=== PATIENT | male | born 1980 | race Caucasian/White ===

== ENCOUNTER 2024-04-07 22:34 | Day surgery (SDC) | payer MEDICAID, SELFPAY ==
[2024-04-07 22:37] VITALS: BP 156/110; PULSE 82; RESP 22; TEMP 36.4; O2SAT 98; BMI 31.6
--- NOTE | 2024-04-07 22:43 | ED.GENADULT ---
HPI - General Adult General Chief complaint: Abdominal Pain Stated complaint: Severe abdominal pain Time Seen by Provider: 04/07/24 22:51 History of Present Illness HPI narrative: Stomach ache eariler after eating tonight. Pt complaining of abdominal pain. 02/17 43-year-old man presenting to the emergency department with severe abdominal pain. Began with mild stomach ache but escalated quickly. Is not reporting any dysuria. Not constipated no diarrhea. He did vomit once. No fever. He is shaking on arrival here but afebrile. Pain intense and persistent. Generally healthy without of problems. Symptoms have been going on for about 5-6 hours at this point. History of bilateral inguinal herniorrhaphy. Related Data Home Medications ?Medication ?Instructions ?Recorded ?Confirmed No Known Home Medications 04/07/24 04/07/24 Allergies Allergy/AdvReac Type Severity Reaction Status Date / Time No Known Drug Allergies Allergy Verified 04/07/24 22:40 Review of Systems Status of ROS: Reports: 6 or more systems reviewed and unremarkable except as noted in History and below Exam Narrative: Exam Narrative: Moaning in apparent discomfort. Mildly labored in mildly tachypneic in his breathing. Trembling as if cold or in significant pain. There is a purple irregular what he identifies is a birthmark on his right upper arm. Otherwise no rash identified. Lips are little dry. Lungs appear clear. Heart in regular rate and rhythm. Abdomen is diffusely tense and tender he indicates though more tenderness in the lower abdomen is where he has been feeling most discomfort. Guarding. Extremities are well perfused without edema Const: Vital Signs, click to edit/add: Vital Signs - 24 hr 04/07/24 22:37 04/07/24 23:13 04/07/24 23:14 Temperature 97.5 F L Pulse Rate 76 78 Pulse Rate [Left P ulse Oximeter] 82 Respiratory Rate 22 Blood Pressure 156/114 H Blood Pressure [Ri ght Upper Arm] 156/110 H Pulse Oximetry 98 100 98 Oxygen Delivery Me thod Room Air 04/07/24 23:15 04/07/24 23:30 04/07/24 23:45 Temperature Pulse Rate 85 90 90 Pulse Rate [Left P ulse Oximeter] Respiratory Rate Blood Pressure Blood Pressure [Ri ght Upper Arm] Pulse Oximetry 96 97 93 Oxygen Delivery Me thod Documenting provider has reviewed patient's vital signs: yes Course Vital Signs Vital signs: Initial Vital Signs Temperature 97.5 F L 04/07/24 22:37 Temperature Source Temporal Artery Scan 04/07/24 22:37 Pulse Rate 82 04/07/24 22:37 Pulse Rhythm Regular 04/07/24 22:37 Respiratory Rate 22 04/07/24 22:37 Blood Pressure 156/110 H 04/07/24 22:37 Blood Pressure Mean 125 H 04/07/24 22:37 Blood Pressure Position Sitting 04/07/24 22:37 Pulse Oximetry 98 04/07/24 22:37 Oxygen Delivery Method Room Air 04/07/24 22:37 Vital Signs Temperature 97.5 F L 04/07/24 22:37 Pulse Rate 82 04/07/24 22:37 Respiratory Rate 22 04/07/24 22:37 Blood Pressure 156/110 H 04/07/24 22:37 Pulse Oximetry 98 04/07/24 22:37 Oxygen Delivery Method Room Air 04/07/24 22:37 Temperature 97.5 F L 04/07/24 22:37 Pulse Rate 90 04/07/24 23:45 Respiratory Rate 22 04/07/24 22:37 Blood Pressure 156/114 H 04/07/24 23:13 Pulse Oximetry 93 04/07/24 23:45 Oxygen Delivery Method Room Air 04/07/24 22:37 Medications Administered Medications: Discontinued Medications Generic Name Dose Route Start Last Admin Trade Name Carla PRN Reason Stop Dose Admin Fentanyl 75 mcg 04/07/24 23:13 04/07/24 23:17 Fentanyl 100 Mcg/2 Ml Inj IVP 04/07/24 23:14 75 mcg ONCE ONE Administration Hydromorphone HCl 0.5 mg 04/07/24 23:06 04/07/24 23:10 Hydromorphone 0.5 Mg/0.5 Ml Inj IVP 04/07/24 23:07 0.5 mg ONCE ONE Administration Sodium Chloride 500 mls @ 1,000 mls/hr 04/07/24 22:48 04/07/24 22:57 0.9 % Sodium Chloride 500 Ml IV 04/07/24 23:17 1,000 mls/hr .Q30M ONE Administration Sodium Chloride 500 mls @ 1,000 mls/hr 04/07/24 23:13 04/08/24 00:04 0.9 % Sodium Chloride 500 Ml IV 04/07/24 23:42 1,000 mls/hr .Q30M ONE Administration Morphine Sulfate 4 mg 04/07/24 22:48 04/07/24 22:57 Morphine 4 Mg/Ml Inj IVP 04/07/24 22:49 4 mg ONCE ONE Administration Ondansetron HCl 4 mg 04/07/24 22:48 04/07/24 22:57 Ondansetron 2 Mg/Ml Inj IVP 04/07/24 22:49 4 mg ONCE ONE Administration Medical Decision Making MDM Narrative Medical decision making narrative: With this degree of pain could simply be intestinal colic or I would have concerns about ischemic bowel. Does not appear to have risk factors for ischemic bowel. Wondering if has excessive spasm, pain due to some smaller insult in his abdomen. Pancreatitis? I think will need imaging of his abdomen and pelvis. Ureteral stone and colic remains in differential. Urinary tract infection? Doubtful. Bowel obstruction/internal hernia. Vascular disruption - also low risk. Rather abrupt course for appendicitis. IV was established. Initially ordered for morphine which was ineffective subsequently given a dose of Dilaudid and repeated and then a fentanyl. Pain he reported was improved from 30 to a 10. Any movement 0 still with good deal of discomfort. CT abdomen pelvis with IV contrast reviewed by me shows inflammatory stranding around a dilated appendix with appendicolith. I do not appreciate any free air. Nephrolithiasis also present nonobstructing. Lactate elevated at 3.1 which I think is probably related to hyperventilating. White count normal. D-dimer reassuring. Creatinine is a little bit elevated at 1.6 --this is unexpected. I do not have prior for comparison. Has received a L of normal saline total. Radiology over-read noted. See below INDICATION: Severe mid and lower abdominal pain. TECHNIQUE: CT abdomen and pelvis acquired with 108 cc of Isovue 370 IV contrast. COMPARISON: None. FINDINGS: Lower chest: Small hiatal hernia. Liver: Unremarkable. Normal in size and attenuation. No suspicious masses. Gallbladder and bile ducts: Unremarkable. No stones or inflammation. No biliary dilatation. Pancreas: Unremarkable. No mass or inflammation. Spleen: Unremarkable. Normal in size. No masses. Adrenal glands: Unremarkable. No nodules. Kidneys: Punctate nonobstructing stone within the right kidney interpolar region. No hydronephrosis or suspicious mass bilaterally. GI tract: Fluid-filled hyperemic appendix with [id number] periappendiceal inflammatory stranding into appendicoliths within the distal lumen. The appendix is dilated up to 14 mm. No evidence for perforation or abscess formation. The small and large bowel are otherwise unremarkable. Vasculature: Abdominal aorta is normal in caliber. Mesenteric arteries are patent. Lymph nodes: No lymphadenopathy. Peritoneum/Abdominal Wall: Unremarkable. No free air or significant free fluid. Pelvis: Unremarkable. Bones: Unremarkable for age. IMPRESSION: 1. Acute uncomplicated appendicitis in the right lower quadrant. 2. Small hiatal hernia. Discussed these findings with General surgery on-call anticipating surgery in the morning. Due to elevated creatinine/renal insufficiency, will not be receiving Zosyn but instead ciprofloxacin and metronidazole. Did discuss this case with hospitalist who is thankfully excepting for admission. Lab Data Lab results reviewed: Yes I reviewed the patient's lab results Labs: Lab Results 04/07/24 Range/Units 22:49 WBC 3.50 L (4.50-11.00) K/uL RBC 5.98 H (4.30-5.90) m/uL Hgb 17.1 (13.5-17.5) gm/dL Hct 50.7 (37.0-53.0) % MCV 85 (80-100) fL MCH 29 (26-34) pg MCHC 34 (32-36) gm/dL RDW Coeff of [place] 13.1 (11.5-15.5) % Plt Count 247 (140-440) K/uL Neut % (Auto) 53.8 (42.0-72.0) % Lymph % (Auto) 37.1 (20-44) % [place] % (Auto) 0.9 (0.0-11.0) % Eos % (Auto) 6.0 (0.0-7.0) % Baso % (Auto) 1.1 (0.0-3.0) % Neut # (Auto) 1.90 (1.7-7.0) K/uL Lymph # (Auto) 1.30 (0.90-2.90) K/uL [place] # (Auto) 0.00 (0.00-0.90) K/UL Eos # (Auto) 0.20 (0.00-0.50) K/uL Baso # (Auto) 0.00 (0.00-0.30) K/uL Abs Immat Gran (auto) 0.00 (0.00-0.30) K/uL Imm/Tot Granulo (auto) 1.1 % Diff Slide Review Acceptable Review (Acceptable) D-Dimer Quant (PE/DVT) 0.09 (0.00-0.50) ug/ml Sodium 137 (135-149) mmol/L Potassium 3.8 (3.6-5.1) mmol/L Chloride 104 (96-114) mmol/L Carbon Dioxide 21 (20-32) mmol/L Anion Gap 12 (7-15) mEq/L BUN 23 (5-24) mg/dL Creatinine 1.6 H (0.5-1.5) mg/dL Estimated Creat Clear 61.47 Estimated GFR 54 ml/min Glucose 108 (60-115) mg/dL Lactate 3.1 H (0.5-1.9) mmol/L Calcium 10.3 (8.4-10.6) mg/dL Total Bilirubin 0.4 (0.1-1.5) mg/dL Direct Bilirubin 0.2 (0.0-0.5) mg/dL AST 28 (12-35) U/L ALT 40 (4-50) U/L Alkaline Phosphatase 83 (40-150) U/L Total Protein 7.7 (6.0-8.3) g/dL Albumin 4.8 (3.3-5.0) g/dL Lipase 97 (23-300) U/L POC Troponin I 0.01 (0.01-0.04) ng/ml Discharge Plan Discharge Clinical Impression: Acute appendicitis, Nephrolithiasis, Hiatal hernia, Acute renal insufficiency Patient Disposition: Admitted As Observation Condition: Improved
[2024-04-07 22:57] LABS: Lactate* 3.1 mmol/L (0.5-1.9)
[2024-04-07] MEDS: ONDANSETRON 2 MG/ML inj 4 MG IVP (22:57)
[2024-04-07] MEDS: MORPHINE 4 MG/ML INJ IVP (22:57)
[2024-04-07] MEDS: 0.9 % SODIUM CHLORIDE 500 ML 500 ML 1000 ML IV (22:57)
[2024-04-07 23:04] LABS: Troponin, Point-of-Care* 0.01 ng/ml (0.01-0.04)
--- NOTE | 2024-04-07 23:07 | CRLHL7_ITS ---
For Patients: As a result of the Century Cures Act, medical imaging exams and procedure reports are released immediately into your electronic medical record. You may view this report before your referring provider. If you have questions, please contact your health care provider. INDICATION: Severe mid and lower abdominal pain. TECHNIQUE: CT abdomen and pelvis acquired with 108 cc of Isovue 370 IV contrast. COMPARISON: None. FINDINGS: Lower chest: Small hiatal hernia. Liver: Unremarkable. Normal in size and attenuation. No suspicious masses. Gallbladder and bile ducts: Unremarkable. No stones or inflammation. No biliary dilatation. Pancreas: Unremarkable. No mass or inflammation. Spleen: Unremarkable. Normal in size. No masses. Adrenal glands: Unremarkable. No nodules. Kidneys: Punctate nonobstructing stone within the right kidney interpolar region. No hydronephrosis or suspicious mass bilaterally. GI tract: Fluid-filled hyperemic appendix with [id number] periappendiceal inflammatory stranding into appendicoliths within the distal lumen. The appendix is dilated up to 14 mm. No evidence for perforation or abscess formation. The small and large bowel are otherwise unremarkable. Vasculature: Abdominal aorta is normal in caliber. Mesenteric arteries are patent. Lymph nodes: No lymphadenopathy. Peritoneum/Abdominal Wall: Unremarkable. No free air or significant free fluid. Pelvis: Unremarkable. Bones: Unremarkable for age. IMPRESSION: 1. Acute uncomplicated appendicitis in the right lower quadrant. 2. Small hiatal hernia. Please note that all CT scans at this facility use dose modulation, iterative reconstruction, and/or weight-based dosing when appropriate to reduce radiation dose to as low as reasonably achievable. Dictated by Kaiser Crain MD @ 04/07/2024 11:47:21 PM (Electronically Signed)
[2024-04-07 23:08] LABS: Basophils Percent Auto 1.1 % (0.0-3.0); Hematocrit 50.7 % (37.0-53.0); Hemoglobin* 17.1 gm/dL (13.5-17.5); Immature Granulocytes Pct Auto 1.1 %; Lymphocytes Percent Auto 37.1 % (20-44); Mean Corpuscular HGB Conc 34 gm/dL (32-36); Mean Corpuscular Hemoglobin 29 pg (26-34); Mean Corpuscular Volume 85 fL (80-100); Monocytes Percent Auto 0.9 % (0.0-11.0); Neutrophils Percent Auto 53.8 % (42.0-72.0); Platelet Count* 247 K/uL (140-440); RDW Coefficient of Variation % 13.1 % (11.5-15.5); Red Blood Count 5.98 m/uL (4.30-5.90)
[2024-04-07] MEDS: HYDROmorphone 0.5 mg/0.5 ml inj IVP (23:10)
[2024-04-07 23:12] LABS: Albumin* 4.8 g/dL (3.3-5.0)
[2024-04-07 23:13] VITALS: BP 156/114; PULSE 76; O2SAT 100
[2024-04-07 23:13] LABS: Chloride* 104 mmol/L (96-114); Potassium* 3.8 mmol/L (3.6-5.1); Sodium* 137 mmol/L (135-149)
[2024-04-07 23:14] VITALS: PULSE 78; O2SAT 98
[2024-04-07 23:15] VITALS: PULSE 85; O2SAT 96
[2024-04-07 23:15] LABS: Anion Gap 12 mEq/L (7-15); Aspartate Amino Transferase* 28 U/L (12-35); Bilirubin Direct* 0.2 mg/dL (0.0-0.5); Bilirubin Total* 0.4 mg/dL (0.1-1.5); Carbon Dioxide* 21 mmol/L (20-32); Creatinine* 1.6 mg/dL (0.5-1.5); Est. Creatinine Clearance* 61.47; Estimated Glomerular Filt Rate 54 ml/min; Total Protein* 7.7 g/dL (6.0-8.3)
[2024-04-07 23:16] LABS: Alanine Aminotransferase* 40 U/L (4-50); Alkaline Phosphatase* 83 U/L (40-150); Blood Urea Nitrogen* 23 mg/dL (5-24); Calcium* 10.3 mg/dL (8.4-10.6); Glucose* 108 mg/dL (60-115); Lipase* 97 U/L (23-300)
[2024-04-07] MEDS: fentaNYL 100 MCG/2 ML inj 75 MCG IVP (23:17)
[2024-04-07 23:22] LABS: Slide Review Reflex Yes
[2024-04-07 23:30] VITALS: PULSE 90; O2SAT 97
[2024-04-07 23:40] LABS: D Dimer Quantitative* 0.09 ug/ml (0.00-0.50)
[2024-04-07 23:45] VITALS: PULSE 90; O2SAT 93
[2024-04-07 23:51] LABS: Slide Review Acceptable Review (Acceptable)
[2024-04-08] VITALS (27 sets, daily range): BP systolic 103–137; BP diastolic 63–91; PULSE 60–97; RESP 13–22; TEMP 36.7–37.4; O2SAT 86–99; BMI 31.9
[2024-04-08] MEDS: 0.9 % SODIUM CHLORIDE 500 ML 500 ML 1000 ML IV (00:04)
[2024-04-08] MEDS: CIPROFLOXACIN 400 MG/200 ML PIGGYBACK 200 MG IVPB (00:48)
--- NOTE | 2024-04-08 00:53 | ED.NURSE ---
This nurse gave report to Med/Surg nurse concerning pt admission. Med/Surg nurse also knows that only Cipro was started on pt in ER and Flagyll will need to be hung on floor. Med/Surg nurse verbalizes that it is okay to send Flagyll with pt and she will hang the abx on the floor. Pt's knows that she can go up with pt, but she will be heading home for the night. Pt knows his surgery will be approx 0380 this morning and Pt has no further questions for this nurse.
[2024-04-08] MEDS: HYDROmorphone 0.5 mg/0.5 ml inj IVP ×4 (01:40→08:11)
[2024-04-08] MEDS: metroNIDAZOLE 500 MG/100 ML PIGGYBACK 100 MG IVPB (01:43)
[2024-04-08] MEDS: 0.9 % SODIUM CHLORIDE 1000 ml 1,000 ML 100 ML IV (01:46)
--- NOTE | 2024-04-08 01:53 | W.PM.TELEH&P ---
Telehealth- H&P: HPI History of Present Illness Date Seen: 04/08/24 Chief complaint: Severe abdominal pain Narrative: Chapito Jones is seen as an Interactive Telehealth visit. Chapito Jones is a 43 year old maleWith no significant past medical history presented to the emergency department with complaint of abdominal pain. Patient reports abdominal pain 4 PM after he ate dinner. He said initially it felt like the pain that you get however I had to eat normal amount. He said the pain was persistent until 9 PM. Again the pain became much more severe and also localized more to the right side. He was unable to get comfortable despite taking shower and laying down in bed. He decided to come in for further evaluation. He denies nausea or vomiting at home however did have 1 episode of vomiting after he arrived to the emergency department. He denies any history of smoking or alcohol use. He denies any history of diabetes, high blood pressure or any heart issues. He denies taking any medications. Review of systems negative for any headaches, dizziness, fever or chills. He does report feeling cold. Denies chest pain or cough. Last bowel movement was to the hospital. ROS other acosta negative ER Course Blood work showed white count of 3.5, hemoglobin 17.1, hematocrit 30.7, platelets 247, sodium 137, potassium 3.8, BUN 23 creatinine 1.6, lactate 3.3 CT abdomen pelvis showed acute uncomplicated enthesitis in the right lower quadrant. ER discussed case with general surgery and surgery plans to take the patient to the OR around 8 AM and as per ER discussion with general surgery Pt was given pain control, IV cipro and flagyl in ER. Review of Systems Narrative: Complete ROS was performed, pertinent positives and negatives per HPI. Meds Home Medications and Allergies Home Medications ?Medication ?Instructions ?Recorded ?Confirmed ?Type No Known Home Medications 04/07/24 04/07/24 History Allergies Allergy/AdvReac Type Severity Reaction Status Date / Time No Known Drug Allergies Allergy Verified 04/07/24 22:40 Exam Narrative Exam Narrative: Physical Exam GENERAL: ?vital signs reviewed, well developed and nourished, in no distress HEENT: pupils are equal round and reactive to light, extraocular movements are grossly within normal limits and oral mucosa is moist. NECK: Supple HEART: Regular rate and rhythm without any rubs, murmurs, or gallops. LUNGS: Clear to auscultation bilaterally with good air movement throughout ABDOMEN: + mild tenderness on right side. no tenderness on rest of quad. NO rebound/guarding. EXTREMITIES: Strength and sensation is observed to be grossly within normal limits in the upper and lower extremities.? No focal strength deficit is observed. SKIN:? Observed warm and dry with color normal Const Vital Signs, click to edit/add: Vital Signs - 24 hr 04/07/24 22:37 04/07/24 23:13 04/07/24 23:14 Temperature 97.5 F L Pulse Rate 76 78 Pulse Rate [Left Pulse Oximeter] 82 Pulse Rate [Pulse Oximeter] Respiratory Rate 22 Blood Pressure 156/114 H Blood Pressure [Left Arm] Blood Pressure [Right Upper Arm] 156/110 H Pulse Oximetry 98 100 98 Oxygen Delivery Method Room Air 04/07/24 23:15 04/07/24 23:30 04/07/24 23:45 Temperature Pulse Rate 85 90 90 Pulse Rate [Left Pulse Oximeter] Pulse Rate [Pulse Oximeter] Respiratory Rate Blood Pressure Blood Pressure [Left Arm] Blood Pressure [Right Upper Arm] Pulse Oximetry 96 97 93 Oxygen Delivery Method 04/08/24 01:25 Temperature 99.4 F Pulse Rate Pulse Rate [Left Pulse Oximeter] Pulse Rate [Pulse Oximeter] 97 Respiratory Rate 20 Blood Pressure Blood Pressure [Left Arm] 137/90 H Blood Pressure [Right Upper Arm] Pulse Oximetry 93 Oxygen Delivery Method Room Air Hospitalist - H&P: Result Labs Labs: Short CBC 04/07/24 Range/Units 22:49 WBC 3.50 L (4.50-11.00) K/uL Hgb 17.1 (13.5-17.5) gm/dL Hct 50.7 (37.0-53.0) % Plt Count 247 (140-440) K/uL BMP 04/07/24 22:49 Sodium 137 Potassium 3.8 Chloride 104 Carbon Dioxide 21 BUN 23 Creatinine 1.6 H Glucose 108 Calcium 10.3 Liver Function 04/07/24 Range/Units 22:49 Total Bilirubin 0.4 (0.1-1.5) mg/dL Direct Bilirubin 0.2 (0.0-0.5) mg/dL AST 28 (12-35) U/L ALT 40 (4-50) U/L Alkaline Phosphatase 83 (40-150) U/L Albumin 4.8 (3.3-5.0) g/dL Assessment and Plan Assessment and plan (1) Acute renal insufficiency: Status: Acute (2) Hiatal hernia: Status: Acute (3) Nephrolithiasis: Status: Acute (4) Acute appendicitis: Status: Acute Plan Patient is 43-year-old overall female presenting with right lower quadrant pain. CT showed uncomplicated appendicitis. General surgery was consulted by ER provider and plan to take pt to OR in am. # Acute Cholecystitis # Elevated Lactate # Elevated BP - cont with NPO, IV fluid and pain and nausea control - due to renal failure, pt started on cipro and flagyl. cont with iv abx - general surgery consulted by ER. Plan to take to OR at 8 am. - one time dose of heparin SQ ordered for now. # ANDREW - no baseline creatinine to compare to - cont with IV fluid and reassess in am. - if bp and renal function dont improve after acute episodes, pt will need outpt follow up. - pt reports he had recent complete physical and only had mildly elevated cholesterol. Otherwise no health issues. Telehealth: Statement Statement Telehealth Visit: Today's History and Physical is provided via interactive telehealth by Althea Espinal MD.? Patient is located at [facility].? Provider is located at [facility].? Nursing staff assisted with the patient's exam. The visit being done today meets criteria for a telehealth visit and the patient or patient?s parent/guardian is aware the visit is a telehealth visit. Camera Start Time: 01:29 Camera End Time: 01:39
[2024-04-08] MEDS: HYDROmorphone 0.5 mg/0.5 ml inj 1 MG IVP (02:52)
[2024-04-08] MEDS: OxyCODONE/APAP 5-325 TABLET 1 TAB PO (02:54)
[2024-04-08 03:37] LABS: Lactate Sepsis w/Reflex* 1.4 mmol/L (0.5-1.9)
[2024-04-08] MEDS: KETOROLAC 15 MG/ML inj IVP (03:44)
--- NOTE | 2024-04-08 05:42 | PC.NURSE ---
Arrived to the floor at 0100. initial rating pain 7/10 in right lower abdomen. see eMAR for intervention. VSS. A&O pleasant and cooperative. denies n/v. 30 minutes after initial pain medication administration pt put call light on, when junior technical writer arrived to the room pt was pale, diaphoretic, and rating pain 10/10 while curled up in bed. Pt reported this pain is worse than when i came in. MD contacted for additional pain medication. see orders. On reassessment pt was lying back in bed and appearing more comfortable. at this time he was still rating his pain 7/10 and reporting he was still uncomfortable. MD contacted again. see orders. O2 sats dropped to 85% on RA. 1 L NC placed and pt now maintaining sats >92%. Pt now sleeping in bed and appears comfortable. up at vin in room. at bedside. NPO since arriving to the floor. plan for surgery at 0800.
--- NOTE | 2024-04-08 08:04 | P.GSCN_ITS ---
History of Present Illness Consult details Date Seen: 04/08/24 Consult date: 04/08/24 Narrative: 43-year-old male presented to emergency room with abdominal pain. Patient states the pain started yesterday late afternoon. The pain was described as dull initially and then was becoming more severe. Patient went to the bathroom to try and have a bowel movement but that did not help his pain. He went to take a shower, and the pain became more severe. He had no vomiting at home but vomited in the emergency room. He is not passing gas. I personally reviewed patient's workup. His WBC was normal. His creatinine was 1.6. An abdominal CT was obtained that showed dilated appendix with wall enhancement with mild periappendiceal inflammation. There was evidence of appendicolith. There is no dilated large or small intestine. Review of Systems Narrative: General: no fevers HENT: no problems swallowing CV: no shortness of breath Resp: no cough GI: No nausea, vomiting, abdominal pain : no dysuria, no increased urinary frequency, no hematuria Skin: no new rashes Musculoskeletal: no back pain Neuro: no muscle weakness Psyche: no depression, no anxiety PFSH PFS Surgical History (Updated 04/08/24 @ 08:07 by Bertrand Narvaez MD) S/P tonsillectomy ?Z90.89 - Acquired absence of other organs (ICD-10) History of inguinal hernia repair, bilateral ?Z98.890 - Other specified postprocedural states (ICD-10) ?Z87.19 - Personal history of other diseases of the digestive system (ICD-10) Social History (Updated 04/08/24 @ 08:07 by Bertrand Narvaez MD) Narrative: 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 What is your current living situation?: I presently have a place to live Problems where you live: no known problems Problems where you live details: n/a In the past 12 months, utilities in danger of being shut off: no In the past 12 mos, have been you worried that your food would run out before you had money to buy more?: never true In the past 12 mos, the food you bought just didn't last and you didn't have money to buy more?: never true Highest level of school completed/degree received: Associate degree: occupat ional, technical, vocational program Smoking Status: Never smoker How often do you have a drink containing alcohol: never AUDIT-C Alcohol total score: 0 How often does anyone, including family, friends and others, physically hurt you : never How often does anyone, including family, friends and others, insult or talk down to you: never How often does anyone, including family, friends and others, threaten you with harm: never How often does anyone, including family, friends and others, scream or curse at you: never Meds Home Medications and Allergies Home Medications ?Medication ?Instructions ?Recorded ?Confirmed ?Type No Known Home Medications 04/07/24 04/07/24 History Allergies Allergy/AdvReac Type Severity Reaction Status Date / Time No Known Drug Allergies Allergy Verified 04/07/24 22:40 Exam Narrative: Exam Narrative: General appearance: Alert, cooperative, and in no distress Pulmonary: Chest symmetric, lungs clear bilaterally Cardiovascular Heart: Regular rate and rhythm, S1, S2, no murmurs/rubs/gallops Gastrointestinal Abdominal: soft, tender to palpation in the right lower quadrant with rebound tenderness and positive Rovsing sign. Skin: Normal skin color, texture, and turgor. No rashes or lesions. Psychiatric: Alert, cooperative, normal affect. Const: Vital Signs, click to edit/add: Vital Signs - 24 hr 04/07/24 22:37 04/07/24 23:13 04/07/24 23:14 Temperature 97.5 F L Pulse Rate 76 78 Pulse Rate [Left P ulse Oximeter] 82 Pulse Rate [Pulse Oximeter] Respiratory Rate 22 Blood Pressure 156/114 H Blood Pressure [Le ft Arm] Blood Pressure [Ri ght Upper Arm] 156/110 H Pulse Oximetry 98 100 98 Oxygen Delivery Me thod Room Air Oxygen Flow Rate 04/07/24 23:15 04/07/24 23:30 04/07/24 23:45 Temperature Pulse Rate 85 90 90 Pulse Rate [Left P ulse Oximeter] Pulse Rate [Pulse Oximeter] Respiratory Rate Blood Pressure Blood Pressure [Le ft Arm] Blood Pressure [Ri ght Upper Arm] Pulse Oximetry 96 97 93 Oxygen Delivery Me thod Oxygen Flow Rate 04/08/24 01:25 04/08/24 03:55 04/08/24 03:57 Temperature 99.4 F Pulse Rate Pulse Rate [Left P ulse Oximeter] Pulse Rate [Pulse Oximeter] 97 90 90 Respiratory Rate 20 18 18 Blood Pressure Blood Pressure [Le ft Arm] 137/90 H Blood Pressure [Ri ght Upper Arm] Pulse Oximetry 93 86 L 92 Oxygen Delivery Me thod Room Air Room Air Nasal Cannula Oxygen Flow Rate 1 04/08/24 06:35 Temperature Pulse Rate Pulse Rate [Left P ulse Oximeter] Pulse Rate [Pulse Oximeter] Respiratory Rate Blood Pressure Blood Pressure [Le ft Arm] Blood Pressure [Ri ght Upper Arm] Pulse Oximetry 95 Oxygen Delivery Me thod Room Air Oxygen Flow Rate Results Labs Labs: Abnormal lab results 04/07/24 Range/Units 22:49 WBC 3.50 L (4.50-11.00) K/uL RBC 5.98 H (4.30-5.90) m/uL Creatinine 1.6 H (0.5-1.5) mg/dL Lactate 3.1 H (0.5-1.9) mmol/L Diabetes panel 04/07/24 Range/Units 22:49 Sodium 137 (135-149) mmol/L Potassium 3.8 (3.6-5.1) mmol/L Chloride 104 (96-114) mmol/L Carbon Dioxide 21 (20-32) mmol/L BUN 23 (5-24) mg/dL Creatinine 1.6 H (0.5-1.5) mg/dL Glucose 108 (60-115) mg/dL Calcium 10.3 (8.4-10.6) mg/dL AST 28 (12-35) U/L ALT 40 (4-50) U/L Alkaline Phosphatase 83 (40-150) U/L Total Protein 7.7 (6.0-8.3) g/dL Albumin 4.8 (3.3-5.0) g/dL Calcium panel 04/07/24 Range/Units 22:49 Calcium 10.3 (8.4-10.6) mg/dL Albumin 4.8 (3.3-5.0) g/dL Pituitary panel 04/07/24 Range/Units 22:49 Sodium 137 (135-149) mmol/L Potassium 3.8 (3.6-5.1) mmol/L Chloride 104 (96-114) mmol/L Carbon Dioxide 21 (20-32) mmol/L BUN 23 (5-24) mg/dL Creatinine 1.6 H (0.5-1.5) mg/dL Glucose 108 (60-115) mg/dL Calcium 10.3 (8.4-10.6) mg/dL Adrenal panel 04/07/24 Range/Units 22:49 Sodium 137 (135-149) mmol/L Potassium 3.8 (3.6-5.1) mmol/L Chloride 104 (96-114) mmol/L Carbon Dioxide 21 (20-32) mmol/L BUN 23 (5-24) mg/dL Creatinine 1.6 H (0.5-1.5) mg/dL Glucose 108 (60-115) mg/dL Calcium 10.3 (8.4-10.6) mg/dL Total Bilirubin 0.4 (0.1-1.5) mg/dL AST 28 (12-35) U/L ALT 40 (4-50) U/L Alkaline Phosphatase 83 (40-150) U/L Total Protein 7.7 (6.0-8.3) g/dL Albumin 4.8 (3.3-5.0) g/dL All other labs normal. Progress Note:A&P Assessment and plan (1) Acute appendicitis: Status: Acute Assessment and Plan: 43-year-old male presents with acute appendicitis. I discussed with the patient and his my clinical findings and his laboratory and CT findings. Patient has wall enhancing appendix with periappendiceal inflammation consistent with acute appendicitis. On clinical exam he has tenderness to palpation the right lower quadrant. I recommended to proceed with laparoscopic appendectomy. The procedure was discussed in detail. The risks associated procedure including infection, bleeding, injury to intra- abdominal organs, and the need for an additional procedures were all discussed with the patient, and he agreed to proceed.
[2024-04-08] MEDS: CEFAZOLIN 2 GM INJ IVP (08:12)
--- NOTE | 2024-04-08 08:15 | W.ANESCHARGE ---
Anesthesia Charges Start Date/Time Anesthesia Start Date: 04/08/24 Anesthesia Start Time: 08:01 Stop Date/Time Anesthesia Stop Date: 04/08/24 Anesthesia Stop Time: 09:09 Summary Emergency: MDA
[2024-04-08] MEDS: BUPIVACAINE 0.25% 30 ML INJECTION (08:55)
[2024-04-08] MEDS: LIDOCAINE 1%-EPI 1:100,000 20 ML INFILTRATI (08:55)
--- NOTE | 2024-04-08 09:02 | P.GSOP_ITS ---
Operative Note Date of procedure: 04/08/24 Pre-op diagnosis: 1. Acute appendicitis. Post-op diagnosis: 1. Acute appendicitis with localized peritonitis. Type of Procedure: 1. Laparoscopic appendectomy. Indications: 43-year-old male presented to emergency room with right lower quadrant abdominal pain that was persistent. Patient had vomiting and was not passing gas. In the emergency room he was found to have WBC that was slightly below normal range. His liver function tests were normal. His creatinine was elevated at 1.6. An abdominal CT was obtained that showed dilated will enhancing appendix with an appendicolith. There was evidence of periappendiceal inflammation but no evidence of phlegmon. On clinical exam he had tenderness to palpation in the right lower quadrant with rebound tenderness and positive Rovsing sign. Given patient's clinical history and his physical exam, acute appendicitis was suspected, and laparoscopic appendectomy was recommended. The procedure was discussed in detail. The risks associated procedure including infection, bleeding, injury to intra-abdominal organs, and intra-abdominal abscess were all discussed with the patient, and he agreed to proceed. Procedure Description: After discussing the risks and benefits of the procedure, the patient signed informed consent.? The operative site was marked and the patient was brought to the operating room and placed on the operating table in supine position.? Care was taken to pad the patient's pressure points.?? The patient was then intubated by anesthesia.?? The operative site was then prepped and draped in the usual sterile fashion.? A time-out was then performed. A 5-mm laparoscopy port was placed in the left upper quadrant guided by a 5-mm laparoscope placed into a translucent trochar. Passage through the layers of the abdominal wall was visualized with the laparoscope. A pneumoperitoneum was established. A 30-degree 5-mm laparoscope was advanced into the abdomen. The abdomen was briefly surveyed, and there was localized peritonitis in the right lower quadrant peritoneum and overlying the terminal ileum and cecum. A 12-mm port and a 5-mm port were placed in the left low quadrant and suprapubically, respectively, under direct visualization by laparoscope. Left upper quadrant entrance port was then examined intraabdominally by placing the camera through the left lower quadrant port and no intraabdominal injury was seen. The patient was placed in Trendelenburg position, allowing the abdominal contents to shift cephalad. The small bowel was moved toward the midline in the abdomen and this allowed for identification of the appendix. It appeared to be inflamed. The appendix was grasped and dissected from the peritoneum using Harmonic scalpel. A [place] clamp was passed between the appendiceal mesentery and the base of the appendix, creating a window. The appendiceal mesentery was further skeletonized with Harmonic scalpel. Appendiceal artery was identified and clipped with 2 5 mm clips on the patient's side and a single clip on the specimen side and divided with Harmonic scalpel. The appendiceal base was further skeletonized. Murky fluid was surrounding the appendix. No obvious perforation was seen but this could be consistent with small perforation. When the base of the appendix was free of adjacent structures, a vascular load Endo- GRETA stapler was advanced through the 12-mm port into the abdomen and appendix was stapled off at its base. The appendix was then placed in an endoscopic retrieval bag and extracted from the abdomen through the 12-mm port. The abdomen was surveyed for hemostasis. And no bleeding was seen. The right lower quadrant space was locally irrigated with normal saline. The 12-mm port was withdrawn and the fascial defect was closed with 0-0 Vicryl stitch using Sunny Gera needle under direct visualization. The 5-mm port was removed under direct visualization. The left upper quadrant port was used to evacuate the pneumoperitoneum and then withdrawn. The skin incisions were closed with 4-0 monocryl. Steri-Strips were applied over the incisions. All counts were correct at the end of the case. The patient tolerated this procedure well and was transferred to PACU in stable condition. Findings: Localized peritonitis with inflamed appendix. Questionable small perforation. Anesthesia: GETA Surgeon: Bertrand Narvaez MD Estimated blood loss (mL): 5 Specimen: Appendix Condition: stable Disposition: PACU
--- NOTE | 2024-04-08 09:09 | PC.NURSE ---
shift note: pt to bathroom. preop vss performed. IV patent. 0.5mg Dilaudid given V.O Dr. Narvaez. pt transported by to same day
--- NOTE | 2024-04-08 09:12 | P.ANES_ITS ---
Anesthesia Charges Start Date/Time Anesthesia Start Date: 04/08/24 Anesthesia Start Time: 08:01 Stop Date/Time Anesthesia Stop Date: 04/08/24 Anesthesia Stop Time: 09:09 Summary Emergency: [employer]
--- NOTE | 2024-04-08 09:44 | SUR.PHASEI ---
patient met discharge criteria per anesthesia
--- NOTE | 2024-04-08 12:38 | SUR.PHASEII ---
Patients O2 Sats on room air drop to 80's. Dr. Narvaez notified and talked with patient if continued O2 in 80's on room air will be monitored in [facility] until sats above 90% on room air.
== END 2024-04-08 13:40 | disposition home or self-care (01) ==
LOC: ED 04-08 00:41 → MEDSURG 04-08 00:50 → SS 04-08 07:16 → MEDSURG 04-08 07:21
PROVIDERS: Internal Medicine; Emergency Provider Family Medicine; Visit Provider Surgery
PROC: 0DTJ4ZZ Resection of Appendix, Percutaneous Endoscopic Approach (ICD-10-PCS; CPT 44970; principal; 2024-04-08 08:00)
DX: K35.30 Acute appendicitis with localized peritonitis, without perforation or gangrene (principal); N20.0 Calculus of kidney; N28.9 Disorder of kidney and ureter, unspecified; K44.9 Diaphragmatic hernia without obstruction or gangrene
CPT/HCPCS: 44970; 00840; 36415; 74177; 80048; 80076; 83605; 83690; 84484; 85025; 85379; 88304; 93005; 99140; 99284; 99285; A9270; G0378; J0330; J0665; J0690; J0744; J1100; J1171; J1836; J1885; J2270; J2405; J2704; J3010; J7030; Q9967

== ENCOUNTER 2024-04-09 22:27 | Inpatient (IN) | payer MEDICAID, SELFPAY ==
[2024-04-09 22:30] VITALS: BP 141/90; PULSE 95; RESP 18; TEMP 36.2; O2SAT 95; BMI 31.6
--- NOTE | 2024-04-09 22:49 | ED.GENADULT ---
HPI - General Adult General Chief complaint: Abdominal Pain Stated complaint: Post appendectomy abdominal pain Time Seen by Provider: 04/09/24 22:49 History of Present Illness HPI narrative: pt reports lower, right and left abd pain-8/10. pt states abd is firm. Pt has appendix removed . 43-year-old man returning to the emergency department following laparoscopic appendectomy yesterday; about 36 hours ago. I received him on initial presentation to the emergency department in atypically severe pain after 6 hours of symptoms. He returns with increasing pain. No fever but maybe feels chilled. A couple of hours ago took 2 tabs of [place]. Has not passed gas since surgery; no bowel movement. Reviewing operative notes there was noted localized peritonitis and some concern of possible microperforation. Surgery was otherwise unremarkable. Was to take Augmentin upon discharge. Related Data Previous Rx's ?Medication ?Instructions ?Recorded amoxicillin 875 mg-potassium 1 tab PO BID #10 tabs 04/08/24 clavulanate 125 mg tablet hydrocodone 5 mg-acetaminophen 325 1 tab PO Q6H PRN pain #25 tabs 04/08/24 mg tablet Allergies Allergy/AdvReac Type Severity Reaction Status Date / Time No Known Drug Allergies Allergy Verified 04/07/24 22:40 Review of Systems Status of ROS: Reports: 6 or more systems reviewed and unremarkable except as noted in History and below [facility] Surgical History S/P tonsillectomy ?Z90.89 - Acquired absence of other organs (ICD-10) History of inguinal hernia repair, bilateral ?Z98.890 - Other specified postprocedural states (ICD-10) ?Z87.19 - Personal history of other diseases of the digestive system (ICD-10) Social History Narrative: 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 What is your current living situation?: I presently have a place to live Problems where you live: no known problems Problems where you live details: n/a In the past 12 months, utilities in danger of being shut off: no In the past 12 mos, have been you worried that your food would run out before you had money to buy more?: never true In the past 12 mos, the food you bought just didn't last and you didn't have money to buy more?: never true Highest level of school completed/degree received: Associate degree: occupational, technical, vocational program Smoking Status: Never smoker How often do you have a drink containing alcohol: never AUDIT-C Alcohol total score: 0 How often does anyone, including family, friends and others, physically hurt you: never How often does anyone, including family, friends and others, insult or talk down to you: never How often does anyone, including family, friends and others, threaten you with harm: never How often does anyone, including family, friends and others, scream or curse at you: never Exam Narrative: Exam Narrative: Pleasant. Calm. Moving extremely gingerly in clear pain. Splints his breathing. Lungs appear to be clear. Pulse is elevated in a regular rhythm. Abdomen abdomen diffusely tender, tense, guarded. Particularly painful with attempted extension at the waist/lying down. Extremities are well perfused. IV in the right AC area. Const: Vital Signs, click to edit/add: Vital Signs - 24 hr 04/09/24 22:30 Temperature 97.1 F L Pulse Rate [Left P ulse Oximeter] 95 Respiratory Rate 18 Blood Pressure [Ri ght Upper Arm] 141/90 H Pulse Oximetry 95 Oxygen Delivery Me thod Room Air Documenting provider has reviewed patient's vital signs: yes Course Vital Signs Vital signs: Initial Vital Signs Temperature 97.1 F L 04/09/24 22:30 Temperature Source Temporal Artery Scan 04/09/24 22:30 Pulse Rate 95 04/09/24 22:30 Pulse Rhythm Regular 04/09/24 22:30 Respiratory Rate 18 04/09/24 22:30 Blood Pressure 141/90 H 04/09/24 22:30 Blood Pressure Mean 107 H 04/09/24 22:30 Blood Pressure Position Sitting 04/09/24 22:30 Pulse Oximetry 95 04/09/24 22:30 Oxygen Delivery Method Room Air 04/09/24 22:30 Vital Signs Temperature 97.1 F L 04/09/24 22:30 Pulse Rate 95 04/09/24 22:30 Respiratory Rate 18 04/09/24 22:30 Blood Pressure 141/90 H 04/09/24 22:30 Pulse Oximetry 95 04/09/24 22:30 Oxygen Delivery Method Room Air 04/09/24 22:30 Temperature 97.1 F L 04/09/24 22:30 Pulse Rate 95 04/09/24 22:30 Respiratory Rate 18 04/09/24 22:30 Blood Pressure 141/90 H 04/09/24 22:30 Pulse Oximetry 95 04/09/24 22:30 Oxygen Delivery Method Room Air 04/09/24 22:30 Medications Administered Medications: Generic Name Dose Route Start Last Admin Trade Name Freq PRN Reason Stop Dose Admin Hydromorphone HCl 1 mg 04/09/24 22:58 04/09/24 23:08 Hydromorphone 0.5 Mg/0.5 Ml Inj IVP 04/09/24 22:59 1 mg ONCE ONE Administration Sodium Chloride 500 mls @ 1,000 mls/hr 04/09/24 22:58 04/09/24 23:09 0.9 % Sodium Chloride 500 Ml IV 04/09/24 23:27 1,000 mls/hr .Q30M ONE Administration Medical Decision Making MDM Narrative Medical decision making narrative: While it might be a little soon, considering concerns noted in surgery, will need to be evaluated for worsening peritonitis or possible abscess collection. Would also consider obstruction/ileus. Will try to control his pain. imaging and labs are pending. I do not have concerns of sepsis at this point. CT abdomen pelvis is pending. Initiated on normal saline and Dilaudid. Have discussed this case with Dr. Ledbetter, surgeon who is on her way to evaluate Mr. Jones. Creatinine has improved from prior. Will be admitted to General surgery. Initiating Zosyn. Medical Records Medical records reviewed: Yes I reviewed the patient's medical records Lab Data Lab results reviewed: Yes I reviewed the patient's lab results Labs: Lab Results 04/09/24 04/09/24 Range/Units 22:55 22:55 WBC 14.88 H (4.50-11.00) K/uL RBC 5.73 (4.30-5.90) m/uL Hgb 16.3 (13.5-17.5) gm/dL Hct 48.8 (37.0-53.0) % MCV 85 (80-100) fL MCH 28 (26-34) pg MCHC 33 (32-36) gm/dL RDW Coeff of [place] 13.3 (11.5-15.5) % Plt Count 194 (140-440) K/uL Neut % (Auto) 90.8 H (42.0-72.0) % Lymph % (Auto) 2.1 L (20-44) % Henderson % (Auto) 5.8 (0.0-11.0) % Eos % (Auto) 0.1 (0.0-7.0) % Baso % (Auto) 0.1 (0.0-3.0) % Neut # (Auto) 13.50 H (1.7-7.0) K/uL Lymph # (Auto) 0.30 L (0.90-2.90) K/uL Henderson # (Auto) 0.90 (0.00-0.90) K/UL Eos # (Auto) 0.00 (0.00-0.50) K/uL Baso # (Auto) 0.00 (0.00-0.30) K/uL Abs Immat Gran (auto) 0.20 (0.00-0.30) K/uL Imm/Tot Granulo (auto) 1.1 % Sodium 134 L (135-149) mmol/L Potassium 4.0 (3.6-5.1) mmol/L Chloride 102 (96-114) mmol/L Carbon Dioxide 21 (20-32) mmol/L Anion Gap 11 (7-15) mEq/L BUN 15 (5-24) mg/dL Creatinine 1.1 (0.5-1.5) mg/dL Estimated Creat Clear 89.41 Estimated GFR 85 ml/min Glucose 127 H (60-115) mg/dL Calcium 9.6 (8.4-10.6) mg/dL C-Reactive Protein 21.9 H Cancelled (0.5-1.0) mg/dL Discharge Plan Discharge Clinical Impression: Ileus, Post-operative pain, Peritonitis Patient Disposition: Admitted As Observation Condition: Stable
--- NOTE | 2024-04-09 22:58 | CRLHL7_ITS ---
For Patients: As a result of the Century Cures Act, medical imaging exams and procedure reports are released immediately into your electronic medical record. You may view this report before your referring provider. If you have questions, please contact your health care provider. INDICATION: Abdominal pain. TECHNIQUE: CT abdomen and pelvis without contrast. COMPARISON: 04/07/2024. FINDINGS: Lower chest: Bibasilar atelectasis. Liver: Normal in size and attenuation. Gallbladder and bile ducts: Vicarious excretion of contrast. No inflammation. No biliary ductal dilatation. Spleen: Normal in size. Adrenal glands: Normal in size. No nodules. Pancreas: No inflammation. Kidneys: Punctate nonobstructive right renal calculus, unchanged. No hydronephrosis. GI tract: Small hiatal hernia. Fluid-filled minimally distended small bowel loops without a transition point. Status post appendectomy. Lymph nodes: No lymphadenopathy. Vasculature: Abdominal aorta is normal in caliber. Abdominal wall/Omentum/Peritoneum: Minimal free fluid in the pelvis. Trace pneumoperitoneum. Small amount of scattered subcutaneous emphysema. Findings are likely postsurgical. Pelvis: Unremarkable. Bones: Unremarkable for age. IMPRESSION: 1. Status post appendectomy. 2. Fluid-filled minimally distended small bowel loops without a transition point, likely representing postoperative ileus. 3. Bibasilar atelectasis. Please note that all CT scans at this facility use dose modulation, iterative reconstruction, and/or weight-based dosing when appropriate to reduce radiation dose to as low as reasonably achievable. Dictated by Brayan Hicks MD @ 04/09/2024 11:43:27 PM (Electronically Signed)
[2024-04-09] MEDS: HYDROmorphone 0.5 mg/0.5 ml inj 1 MG IVP (23:08)
[2024-04-09] MEDS: 0.9 % SODIUM CHLORIDE 500 ML 500 ML 1000 ML IV (23:09)
[2024-04-09 23:15] LABS: Basophils Percent Auto 0.1 % (0.0-3.0); Eosinophils Percent Auto 0.1 % (0.0-7.0); Hematocrit 48.8 % (37.0-53.0); Hemoglobin* 16.3 gm/dL (13.5-17.5); Immature Granulocytes Pct Auto 1.1 %; Lymphocytes Percent Auto 2.1 % (20-44); Mean Corpuscular HGB Conc 33 gm/dL (32-36); Mean Corpuscular Hemoglobin 28 pg (26-34); Mean Corpuscular Volume 85 fL (80-100); Monocytes Percent Auto 5.8 % (0.0-11.0); Neutrophils Percent Auto 90.8 % (42.0-72.0); Platelet Count* 194 K/uL (140-440); RDW Coefficient of Variation % 13.3 % (11.5-15.5); Red Blood Count 5.73 m/uL (4.30-5.90); White Blood Count* 14.88 K/uL (4.50-11.00)
[2024-04-09 23:21] LABS: Slide Review Reflex No
[2024-04-09 23:25] LABS: Chloride* 102 mmol/L (96-114); Sodium* 134 mmol/L (135-149)
[2024-04-09 23:28] LABS: Creatinine* 1.1 mg/dL (0.5-1.5); Est. Creatinine Clearance* 89.41; Estimated Glomerular Filt Rate 85 ml/min
[2024-04-09 23:29] LABS: Anion Gap 11 mEq/L (7-15); Blood Urea Nitrogen* 15 mg/dL (5-24); Calcium* 9.6 mg/dL (8.4-10.6); Carbon Dioxide* 21 mmol/L (20-32); Glucose* 127 mg/dL (60-115)
[2024-04-09 23:53] LABS: C Reactive Protein* 21.9 mg/dL (0.5-1.0)
[2024-04-10] VITALS (10 sets, daily range): BP systolic 113–149; BP diastolic 88–98; PULSE 71–101; RESP 16–18; TEMP 36.6–37.1; O2SAT 91–97; BMI 32.0
[2024-04-10] MEDS: PIPERACILLIN/TAZOBACTAM 4.5 GM in 0.9 % SODIUM CHLORIDE Mini-bag 100 ML IVPB
--- NOTE | 2024-04-10 | P.GSHP_ITS ---
History of Present Illness History of Present Illness Date Seen: 04/10/24 Chief complaint: Post appy abdominal pain Narrative: Chapito Jones is a 43 year old male presented to emergency room with diffuse abdominal pain. Patient underwent laparoscopic appendectomy 2 days ago. Patient states that he has been tolerating clears with no nausea and vomiting. However, he was not passing gas. He states that his pain was not well controlled with oral medication. The pain was in the lower abdomen and constant. He denies fevers. 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 What is your current living situation?: I presently have a place to live Problems where you live: no known problems Problems where you live details: n/a In the past 12 months, utilities in danger of being shut off: no In the past 12 mos, have been you worried that your food would run out before you had money to buy more?: never true In the past 12 mos, the food you bought just didn't last and you didn't have money to buy more?: never true Highest level of school completed/degree received: Associate degree: occupational, technical, vocational program Smoking Status: Never smoker How often do you have a drink containing alcohol: never AUDIT-C Alcohol total score: 0 How often does anyone, including family, friends and others, physically hurt you : never How often does anyone, including family, friends and others, insult or talk down to you: never How often does anyone, including family, friends and others, threaten you with harm: never How often does anyone, including family, friends and others, scream or curse at you: never Meds Home Medications and Allergies Allergies Allergy/AdvReac Type Severity Reaction Status Date / Time No Known Drug Allergies Allergy Verified 04/07/24 22:40 Exam Narrative: Exam Narrative: General appearance: Alert, cooperative, and in no distress Pulmonary: Chest symmetric, lungs clear bilaterally Cardiovascular Heart: Regular rate and rhythm, S1, S2, no murmurs/rubs/gallops Gastrointestinal Abdominal: soft, minimally distended, tenderness to palpation throughout the abdomen. Left lower laparoscopic incision has erythema extending laterally. Other laparoscopic incisions are covered with clean Steri-Strips. Psychiatric: Alert, cooperative, normal affect. Const: Vital Signs, click to edit/add: Vital Signs - 24 hr 04/09/24 22:30 Temperature 97.1 F L Pulse Rate [Left P ulse Oximeter] 95 Respiratory Rate 18 Blood Pressure [Ri ght Upper Arm] 141/90 H Pulse Oximetry 95 Oxygen Delivery Me thod Room Air Progress Note:A&P Assessment and plan (1) Ileus: Status: Acute (2) S/P laparoscopic appendectomy: Status: Acute Assessment and Plan: 43-year-old male s/p laparoscopic appendectomy POD 2 presents with postoperative ileus. I discussed with the patient and his his laboratory and imaging findings. His WBC is elevated at 14. Patient was discharged home on p.o. antibiotics. His abdominal CT shows diffusely dilated loops of small intestine, intact abraham in the right lower quadrant at the surgical site with no significant flu id collection. He has subcutaneous air in soft tissues suprapubically extending into the scrotum. This air is postsurgical as patient was noted to have inflated scrotum immediate after laparoscopic appendectomy. Patient's left lower quadrant incision has erythema extending laterally. It would be unusual for surgical site infection to be this early in the postoperative course. Will admit the patient for IV antibiotics and bowel rest. Patient will continue to be NPO with IV fluids until he has return of bowel function. Patient did not have any nausea or vomiting so will hold off on placing NG tube.
[2024-04-10] MEDS: HYDROmorphone 0.5 mg/0.5 ml inj IVP ×5 (01:06→22:32)
[2024-04-10] MEDS: LACTATED RINGERS 1000 ML 1,000 ML 100 ML IV ×2 (01:07→12:55)
[2024-04-10] MEDS: HYDROCODONE-ACETAMIN 5-325 MG 1 TAB PO ×3 (04:20→17:20)
[2024-04-10] MEDS: ONDANSETRON 2 MG/ML inj IVP (05:47)
[2024-04-10] MEDS: PIPERACILLIN/TAZOBACTAM 3.375 GM in 0.9 % SODIUM CHLORIDE Mini-bag 100 ML IVPB ×4 (05:56→23:20)
--- NOTE | 2024-04-10 07:33 | PC.NURSE ---
Pt alert and oriented x3. Afebrile. Pt reports 4/10 pain in abdomen, pain managed with PRN medications. Pt reports nausea, managed with PRN medication. Pt is up a vin, voiding and tolerating an NPO diet. ?
[2024-04-10] MEDS: PANTOPRAZOLE SODIUM 40 MG INJ IVP (08:34)
--- NOTE | 2024-04-10 10:38 | P.GSPN_ITS ---
Subjective Subjective Date Seen: 04/10/24 Interval history: Patient's pain is better controlled in patient. He had some nausea and received anti nausea medication. He passed gas 3 times. He ambulated once. Exam Narrative: Exam Narrative: Abdomen soft, somewhat distended, tender to palpation throughout the abdomen with most tenderness in the left lower quadrant, left lower quadrant mallory- incisional erythema was marked with a marking pen. Const: Vital Signs, click to edit/add: Vital Signs - 24 hr 04/09/24 22:30 04/10/24 00:20 04/10/24 00:20 Temperature 97.1 F L 98.1 F Pulse Rate [Left P ulse Oximeter] 95 Pulse Rate [Pulse Oximeter] 101 H Respiratory Rate 18 18 18 Blood Pressure [Ri ght Arm] 138/92 H Blood Pressure [Ri ght Upper Arm] 141/90 H Pulse Oximetry 95 93 95 Oxygen Delivery Me thod Room Air Room Air Room Air 04/10/24 04:15 04/10/24 07:00 04/10/24 08:00 Temperature 98.3 F 97.8 F Pulse Rate [Left P ulse Oximeter] Pulse Rate [Pulse Oximeter] 81 78 Respiratory Rate 16 18 18 Blood Pressure [Ri ght Arm] 145/97 H 149/88 H Blood Pressure [Ri ght Upper Arm] Pulse Oximetry 91 96 96 Oxygen Delivery Me thod Room Air Room Air Room Air Progress Note:A&P Assessment and plan (1) S/P laparoscopic appendectomy: Status: Acute (2) Post-operative pain: Status: Acute Assessment and Plan: 43-year-old male s/p laparoscopic appendectomy POD 2 with postop ileus. I discussed with the patient that we will continue NPO with IV fluids and IV antibiotics. If patient continues to have nausea, we may consider placing NG tube in. Not ready for discharge.
--- NOTE | 2024-04-10 18:47 | PC.NURSE ---
shift note: vss stable. pt afeb. lap site x3 intact. abd distended, taunt, and tender to touch. pt had acid reflux this a.m. Dr. Upton notified and protonix IV given. upper bs hypoactive this a.m but absent throughout this afternoon. pt passed flatus a couple of times and was belching more this a.m then this afternoon. pt ambulating in [place] with spouse x5.
--- NOTE | 2024-04-10 18:50 | PC.NURSE ---
shift note: pt medicated for 4-6/10 abd pain with prn dilaudid and norco with relief of pain rating 2-3/10.
[2024-04-11] VITALS (8 sets, daily range): BP systolic 135–151; BP diastolic 94–101; PULSE 83–87; RESP 16–18; TEMP 36.7–37.2; O2SAT 84–93
[2024-04-11] MEDS: HYDROCODONE-ACETAMIN 5-325 MG 1 TAB PO ×4 (00:09→23:20)
[2024-04-11] MEDS: HYDROmorphone 0.5 mg/0.5 ml inj IVP ×5 (00:09→23:09)
[2024-04-11] MEDS: LACTATED RINGERS 1000 ML 1,000 ML 100 ML IV (01:12)
[2024-04-11] MEDS: PIPERACILLIN/TAZOBACTAM 3.375 GM in 0.9 % SODIUM CHLORIDE Mini-bag 100 ML IVPB ×4 (06:02→23:25)
[2024-04-11] MEDS: PANTOPRAZOLE SODIUM 40 MG INJ IVP (06:09)
[2024-04-11 06:32] LABS: Basophils Percent Auto 0.2 % (0.0-3.0); Eosinophils Percent Auto 0.5 % (0.0-7.0); Hematocrit 45.7 % (37.0-53.0); Immature Granulocytes Pct Auto 0.2 %; Lymphocytes Percent Auto 3.4 % (20-44); Mean Corpuscular HGB Conc 33 gm/dL (32-36); Mean Corpuscular Hemoglobin 29 pg (26-34); Mean Corpuscular Volume 87 fL (80-100); Monocytes Percent Auto 6.6 % (0.0-11.0); Neutrophils Percent Auto 89.1 % (42.0-72.0); Platelet Count* 194 K/uL (140-440); RDW Coefficient of Variation % 13.4 % (11.5-15.5); Red Blood Count 5.27 m/uL (4.30-5.90); White Blood Count* 12.28 K/uL (4.50-11.00)
[2024-04-11 06:33] LABS: Slide Review Reflex No
[2024-04-11 06:42] LABS: Chloride* 105 mmol/L (96-114); Sodium* 138 mmol/L (135-149)
[2024-04-11 06:45] LABS: Anion Gap 8 mEq/L (7-15); Blood Urea Nitrogen* 16 mg/dL (5-24); Calcium* 9.1 mg/dL (8.4-10.6); Carbon Dioxide* 25 mmol/L (20-32); Creatinine* 1.1 mg/dL (0.5-1.5); Est. Creatinine Clearance* 89.41; Estimated Glomerular Filt Rate 85 ml/min; Glucose* 102 mg/dL (60-115)
--- NOTE | 2024-04-11 07:33 | PC.NURSE ---
Pt alert and oriented x3. Afebrile. Pt?reports 4-7/10 pain in abdomen, pain managed with PRN medications.?Pt is up a vin, voiding and tolerating an NPO diet. Pt reports passing gas.
--- NOTE | 2024-04-11 08:51 | PM.GSPN ---
Subjective Subjective Date Seen: 04/11/24 Interval history: Patient's pain is better controlled. He denies any vomiting. Had 1 episode of nausea. He ambulated multiple times. Passed gas multiple times. Exam Narrative: Exam Narrative: Abdomen is soft, not very distended. Tender to palpation throughout the abdomen. Left lower quadrant laparoscopic incision is still with faint erythema extending laterally but the erythema is now improved and did not extend beyond the pen markings. Const: Vital Signs, click to edit/add: Vital Signs - 24 hr 04/10/24 12:00 04/10/24 15:00 04/10/24 16:00 Temperature 97.8 F 98.3 F Pulse Rate [Pulse Oximeter] 71 80 Respiratory Rate 16 18 18 Blood Pressure [Ri ght Arm] 113/94 H 133/98 H Pulse Oximetry 92 96 97 Oxygen Delivery Me thod Room Air Room Air Room Air 04/10/24 19:51 04/10/24 22:36 04/10/24 22:36 Temperature 98.8 F Pulse Rate [Pulse Oximeter] 85 85 Respiratory Rate 18 18 18 Blood Pressure [Ri ght Arm] 146/94 H Pulse Oximetry 92 92 Oxygen Delivery Me thod Room Air Room Air 04/10/24 22:37 04/11/24 01:14 04/11/24 07:00 Temperature 98.4 F 98.1 F Pulse Rate [Pulse Oximeter] 85 87 85 Respiratory Rate 18 18 18 Blood Pressure [Ri ght Arm] 131/95 H 135/94 H Pulse Oximetry 92 91 Oxygen Delivery Me thod Room Air Room Air 04/11/24 07:00 04/11/24 07:00 Temperature 98.0 F Pulse Rate [Pulse Oximeter] 85 Respiratory Rate 18 18 Blood Pressure [Ri ght Arm] 141/95 H Pulse Oximetry 93 93 Oxygen Delivery Me thod Room Air Room Air Progress Note:A&P Assessment and plan (1) S/P laparoscopic appendectomy: Status: Acute Assessment and Plan: 43-year-old male s/p laparoscopic appendectomy POD 3 with postop ileus. I discussed with the patient that we can advance his diet to sips of clears. Patient advance slowly. Will continue with IV antibiotics. His WBC went down to 12 from 14 yesterday. Will decrease IV fluids to 75 an hour until patient is having enough oral intake to stop the fluids. Not ready to discharge home today.
[2024-04-11] MEDS: LACTATED RINGERS 1000 ML 1,000 ML 75 ML IV (16:18)
--- NOTE | 2024-04-11 18:29 | PC.NURSE ---
End of shift: patient a/o x4, pleasant and cooperative. Ambulating hallways throughout the day. No passing gas today, c/o feeling cramps down there but nothing. Patient is burping when ambulating, abd still distended and firm. Patient tried ice, and heating pad and Hot shower w/minimal relief. PRN dilauded and [place] administered w/relief. Patient rates pain 6/10. Patient tolerating clears. LR running @75mls/hr. IV in right FA patent. Patient denies N/V/SOB and 93% on RA.
[2024-04-12] VITALS (7 sets, daily range): BP systolic 144–159; BP diastolic 98–107; PULSE 62–80; RESP 16–18; TEMP 36.6–37.1; O2SAT 92–94
[2024-04-12] MEDS: HYDROmorphone 0.5 mg/0.5 ml inj IVP (03:34)
[2024-04-12] MEDS: PIPERACILLIN/TAZOBACTAM 3.375 GM in 0.9 % SODIUM CHLORIDE Mini-bag 100 ML IVPB ×4 (06:06→23:27)
[2024-04-12] MEDS: PANTOPRAZOLE SODIUM 40 MG INJ IVP (06:12)
[2024-04-12] MEDS: LACTATED RINGERS 1000 ML 1,000 ML 75 ML IV (06:17)
--- NOTE | 2024-04-12 06:34 | PC.NURSE ---
End of shift note: Pt A&Ox4 and able to make needs known. Pt continent of bladder. He is not passing gas at this time when asked though noted to have a moderate amount of soft/formed stool in toilet early this morning. Pt independent with transferring and ambulating. Pt afebrile and on RA throughout the shift. Lap sites to abdomen noted to be C/D/I with steri strips in place. Abdominal pain managed with PRN [place], Dilaudid, rest, ice and repositioning. Pt requested two tabs PRN [place] for 6/10 abdominal pain. Pt has been denying nausea when asked. IV to R AC patent with LR running per order when not receiving IV antibiotic ran IVPB with NS. Pt tolerating clear liquid diet though is cautious about drinking clear po fluids. ?
[2024-04-12 09:35] LABS: Basophils Percent Auto 0.1 % (0.0-3.0); Eosinophils Percent Auto 0.3 % (0.0-7.0); Hematocrit 44.7 % (37.0-53.0); Hemoglobin* 14.7 gm/dL (13.5-17.5); Immature Granulocytes Pct Auto 0.2 %; Lymphocytes Percent Auto 5.2 % (20-44); Mean Corpuscular HGB Conc 33 gm/dL (32-36); Mean Corpuscular Hemoglobin 28 pg (26-34); Mean Corpuscular Volume 86 fL (80-100); Monocytes Percent Auto 7.9 % (0.0-11.0); Neutrophils Percent Auto 86.3 % (42.0-72.0); Platelet Count* 229 K/uL (140-440); RDW Coefficient of Variation % 13.4 % (11.5-15.5); Red Blood Count 5.18 m/uL (4.30-5.90); White Blood Count* 13.09 K/uL (4.50-11.00)
[2024-04-12 10:06] LABS: Slide Review Reflex No
--- NOTE | 2024-04-12 13:39 | PM.GSPN ---
Subjective Subjective Date Seen: 04/12/24 Interval history: Patient had significant amount of pain yesterday but overnight have small bowel movement and passed gas. His pain is improved today. He has not been taking pain medication. He still feels bloated. He tolerated some clears. Exam Narrative: Exam Narrative: Abdomen is soft, distended, and the skin is edematous, abdomen is not tender to palpation. Left lower quadrant incision with previous erythema looks improved with no erythema noted. Const: Vital Signs, click to edit/add: Vital Signs - 24 hr 04/11/24 15:00 04/11/24 15:00 04/11/24 15:00 Temperature 98.0 F Pulse Rate [Pulse Oximeter] 83 84 Respiratory Rate 18 18 18 Blood Pressure [Ri ght Arm] 142/95 H Pulse Oximetry 93 84 L Oxygen Delivery Me thod Room Air Room Air 04/11/24 20:11 04/11/24 23:00 04/11/24 23:27 Temperature 98.9 F Pulse Rate [Pulse Oximeter] 87 83 Respiratory Rate 18 16 16 Blood Pressure [Ri ght Arm] 151/95 H Pulse Oximetry 92 91 Oxygen Delivery Me thod Room Air Room Air 04/11/24 23:29 04/12/24 03:46 04/12/24 07:00 Temperature 98.7 F 98.4 F Pulse Rate [Pulse Oximeter] 83 80 79 Respiratory Rate 16 18 16 Blood Pressure [Ri ght Arm] 145/101 H 144/100 H Pulse Oximetry 91 92 Oxygen Delivery Me thod Room Air Room Air 04/12/24 07:00 04/12/24 07:00 Temperature 98.3 F Pulse Rate [Pulse Oximeter] 79 Respiratory Rate 16 16 Blood Pressure [Ri ght Arm] 150/104 H Pulse Oximetry 93 93 Oxygen Delivery Me thod Room Air Room Air Progress Note:A&P Assessment and plan (1) S/P laparoscopic appendectomy: Status: Acute Assessment and Plan: 43-year-old male s/p laparoscopic appendectomy with postop ileus POD 4. And flushed with the patient and his that his WBC is 13 and yesterday was 12. Patient's clinical exam is improved and his a febrile. I recommended to advance his diet slowly and continue with IV antibiotics until his WBC is normal or nearly normal. Not ready to go home today.
[2024-04-12] MEDS: HYDROCODONE-ACETAMIN 5-325 MG 1 TAB PO (23:34)
[2024-04-13 03:00] VITALS: RESP 16
[2024-04-13 04:21] LABS: Basophils Percent Auto 0.2 % (0.0-3.0); Eosinophils Percent Auto 1.5 % (0.0-7.0); Hematocrit 45.6 % (37.0-53.0); Immature Granulocytes Pct Auto 0.7 %; Lymphocytes Percent Auto 10.3 % (20-44); Mean Corpuscular HGB Conc 33 gm/dL (32-36); Mean Corpuscular Hemoglobin 29 pg (26-34); Mean Corpuscular Volume 87 fL (80-100); Monocytes Percent Auto 8.4 % (0.0-11.0); Neutrophils Percent Auto 78.9 % (42.0-72.0); Platelet Count* 250 K/uL (140-440); RDW Coefficient of Variation % 13.3 % (11.5-15.5); Red Blood Count 5.26 m/uL (4.30-5.90); White Blood Count* 11.79 K/uL (4.50-11.00)
[2024-04-13 04:22] LABS: Slide Review Reflex No
[2024-04-13] MEDS: PANTOPRAZOLE SODIUM 40 MG INJ IVP (06:15)
[2024-04-13] MEDS: PIPERACILLIN/TAZOBACTAM 3.375 GM in 0.9 % SODIUM CHLORIDE Mini-bag 100 ML IVPB (06:15)
[2024-04-13] MEDS: ACETAMINOPHEN 325 MG TABLET 650 MG PO (06:25)
--- NOTE | 2024-04-13 06:32 | PC.NURSE ---
End of shift note [id number]: Pt passing gas and had several BMs yesterday and two overnight per pt report. 2-07/18 abdominal pain has been controlled this shift using ice, rest, repositioning and PRN [place] and Tylenol. IV to R AC patent and SL. Pt transfers and ambulates independently. He is continent of bladder. Pt has been denying nausea when asked. DBP continues to trend high though day nurse and pt reported MD Narvaez addressed this with pt. DBP could be elevated during this hospital stay due to pain and medications. Pt requested not to be woken up for 0300 VS. Pt reports sleeping well overnight. WBC noted to be decreased this morning when compared to yesterday?s value. ?
--- NOTE | 2024-04-13 06:54 | PC.NURSE ---
MD Narvaez called this morning requesting update on pt. Pt's pain is improving and he states he feels less bloated. He is passing gas and having bowel movements. MD Narvaez gave telephone orders to stop Zosyn after receiving 0600 dose and change IV antibiotic to Ertapenem 1 gm Q24H to start at noon. MD Narvaez will be in to see pt around lunch time. This RN discussed further plan of care with patient so he is aware of today's plan.
[2024-04-13 07:00] VITALS: BP 149/100; PULSE 83; RESP 20; TEMP 37; O2SAT 92
[2024-04-13 11:00] VITALS: BP 151/92; PULSE 78; RESP 20; TEMP 36.9; O2SAT 96
[2024-04-13] MEDS: ERTAPENEM 1 GM in 0.9 % SODIUM CHLORIDE Mini-bag 100 ML IVPB (12:14)
--- NOTE | 2024-04-18 11:56 | PM.DS1 ---
DS: Providers Provider Date Seen: 04/13/24 Date of admission: 04/09/24 23:57 Primary care physician: Not a Local Provider Admitting Clinician: Bertrand Narvaez MD Attending Physician on discharge: Bertrand Narvaez MD Date of Discharge: 04/13/24 DS: Diagnosis Discharge Diagnosis (1) Peritonitis: Status: Inactive DS: Summary Hospital Course Hospital Course: 43-year-old male was admitted to the hospital with abdominal pain 2 days after laparoscopic appendectomy. Patient was found to have postoperative ileus and was treated with IV antibiotics. Patient's ileus was resolving by the day of discharge. Patient was tolerating regular diet. He continued to have elevated WBC and was sent home on IV antibiotics. Time Spent with Patient Time attestation: Total time spent providing and/or coordinating discharge services: Exam Narrative: Exam Narrative: Abdomen slightly distended not tender to palpation, no peritoneal signs. Discharge Plan Discharge Disposition: Home, Self-Care Date of Admission: 04/09/24 23:57 Attending Provider on Discharge: Bertrand Narvaez Primary Care Provider: Provider,Not a Local Condition: Stable Anticipated Discharge Date/Time: 04/13/24 14:00 Discharge Medications: Continued hydrocodone-acetaminophen 5-325 mg tablet 1 tab PO Q6H PRN (Reason: pain) Qty: 25 0RF Discontinued amoxicillin-pot clavulanate 875-125 mg tablet 1 tab PO BID Qty: 10 0RF Discharge Orders: Discharge Order (Routine); Ordered 04/13/24 Ordered By: Bertrand Narvaez Patient Education: Hydrocodone/Acetaminophen (By mouth), Ertapenem (By injection), Peritonitis (DC) Additional Instructions: Patient will be discharged on IV ertapenem every day for 7 days. 04/14/24 - Report to [facility] at 2:00pm for first outpatient IV antibiotic therapy. Activity Level: No Restrictions and No strenuous activity Discharge Diet: Regular Follow Up Appointments: Bertrand Narvaez MD [Staff Physician] - 04/27/24 2:00 pm ([facility] for post hospital follow-up.) Forms: [employer] Info Instructions
== END 2024-04-13 14:05 | disposition home or self-care (01) | DRG 252 ==
LOC: ED 23:58 → MEDSURG 04-10 03:19
PROVIDERS: Admitting Provider Surgery; Emergency Provider Family Medicine; Visit Provider Surgery
DX: K91.89 Other postprocedural complications and disorders of digestive system (principal); K35.30 Acute appendicitis with localized peritonitis, without perforation or gangrene; K56.7 Ileus, unspecified; G89.18 Other acute postprocedural pain; R10.84 Generalized abdominal pain; Z90.49 Acquired absence of other specified parts of digestive tract
CPT/HCPCS: 36415; 74176; 80048; 85025; 86140; 99284; 99285; A9270; J1171; J1335; J2405; J2470; J2543; J7030; J7120

== ENCOUNTER 2024-04-20 14:00 | Outpatient (RCR) | payer MEDICAID, SELFPAY ==
[2024-04-14] MEDS: ERTAPENEM 1 GM in 0.9 % SODIUM CHLORIDE Mini-bag 100 ML IVPB (14:07)
[2024-04-14 14:11] VITALS: BP 138/90; PULSE 74; RESP 16; TEMP 36.7; O2SAT 94
[2024-04-14] MEDS: 0.9 % SODIUM CHLORIDE 500 ML IV (15:00)
[2024-04-14] MEDS: SODIUM CHLORIDE 0.9 % (FLUSH) 10 ML SYRINGE IVF (15:00)
[2024-04-15] MEDS: ERTAPENEM 1 GM in 0.9 % SODIUM CHLORIDE Mini-bag 100 ML IVPB (13:43)
[2024-04-15] MEDS: SODIUM CHLORIDE 0.9 % (FLUSH) 10 ML SYRINGE IVF (13:46)
[2024-04-16] MEDS: ERTAPENEM 1 GM in 0.9 % SODIUM CHLORIDE Mini-bag 100 ML IVPB (13:40)
[2024-04-16 14:20] VITALS: BP 140/90; PULSE 70; RESP 16; TEMP 36.4; O2SAT 97
[2024-04-17] MEDS: ERTAPENEM 1 GM in 0.9 % SODIUM CHLORIDE Mini-bag 100 ML IVPB (13:59)
[2024-04-17 14:07] VITALS: BP 123/84; PULSE 67; RESP 16; TEMP 36.3; O2SAT 97
[2024-04-17] MEDS: SODIUM CHLORIDE 0.9 % (FLUSH) 10 ML SYRINGE IVF (14:32)
[2024-04-18] MEDS: ERTAPENEM 1 GM in 0.9 % SODIUM CHLORIDE Mini-bag 100 ML IVPB (13:56)
[2024-04-18] MEDS: SODIUM CHLORIDE 0.9 % (FLUSH) 10 ML SYRINGE IVF ×2 (13:56→14:30)
[2024-04-18 14:01] VITALS: BP 123/84; PULSE 83; RESP 16; TEMP 35.9; O2SAT 98
[2024-04-19] MEDS: SODIUM CHLORIDE 0.9 % (FLUSH) 10 ML SYRINGE IVF (13:51)
[2024-04-19] MEDS: ERTAPENEM 1 GM in 0.9 % SODIUM CHLORIDE Mini-bag 100 ML IVPB (13:51)
[2024-04-20 13:57] VITALS: BP 126/85; PULSE 88; RESP 16; TEMP 36.1; O2SAT 95
[2024-04-20] MEDS: ERTAPENEM 1 GM in 0.9 % SODIUM CHLORIDE Mini-bag 100 ML IVPB (14:40)
[2024-04-20] MEDS: SODIUM CHLORIDE 0.9 % (FLUSH) 10 ML SYRINGE IVF (14:43)
== END 2024-10-11 23:59 | disposition home or self-care (01) ==
LOC: CCIC 14:00
PROVIDERS: Visit Provider Clinical Nurse Specialist
DX: K91.89 Other postprocedural complications and disorders of digestive system (principal); K56.7 Ileus, unspecified
CPT/HCPCS: 96365; G0463; J1335; J7030

== ENCOUNTER 2025-03-10 07:53 | Outpatient (CLI) | payer MEDICAID, SELFPAY ==
--- NOTE | 2025-03-10 08:15 | CRLHL7_ITS ---
For Patients: As a result of the Century Cures Act, medical imaging exams and procedure reports are released immediately into your electronic medical record. You may view this report before your referring provider. If you have questions, please contact your health care provider. INDICATION: Neck pain. Cervical radiculopathy. TECHNIQUE: Noncontrast sagittal T1, T2, STIR and axial GRE sequences are provided. No comparisons. FINDINGS: The overall stature, alignment and intrinsic marrow signal of the cervical spine is within normal limits. Cervical cord is normal. C2-3, C3-4, C4-5: Unremarkable. C5-6: Mild disc osteophyte complex results in no central canal narrowing. [id number] bilateral foraminal narrowing due to uncovertebral joint and facet arthropathy. C6-7: Asymmetric uncovertebral joint and facet arthropathy results in moderate left and no right foraminal narrowing. No central canal narrowing. C7-T1: Unremarkable. IMPRESSION: 1. [id number] bilateral C5-6 foraminal narrowing. 2. Moderate left C6-7 foraminal narrowing. Dictated by Chet Wynn MD @ 03/10/2025 5:21:48 PM (Electronically Signed)
== END 2025-03-10 07:54 | disposition home or self-care (01) ==
LOC: MRI 07:54
PROVIDERS: Visit Provider Anesthesiology Pain Medicine
DX: M54.12 Radiculopathy, cervical region (principal); M50.222 Other cervical disc displacement at C5-C6 level; M50.223 Other cervical disc displacement at C6-C7 level
CPT/HCPCS: 72141